=== PATIENT | female | born 1990 | race Caucasian/White ===

== ENCOUNTER 2021-01-07 10:02 | Emergency (ER) | payer MEDICARE ==
[~2021-01-07] VITALS: Ht 165.1 cm; Wt 118.2 kg
[~2021-01-07 10:02] MED LIST: CEPHALEXIN500 M1 PO; FLOMAX 0.40.4 MG/CAP PO; LAMICTAL 25MG T25 MG PO; LITHIUM 30300 MG/CAP PO; LORTAB 5/500 501 TAB PO; MINIPRESS2 MG PO; NAC600 MG PO; NO HOME MEDICATIONS; ORTHO-NOVUM 1/31 TA1 PO; ORTHO-NOVUM 7/71 TA1 PO; PERCOCET 325 MG1 TA2 PO; PHENERGAN 25 TA25 MG PO; SEROQUEL 2525 MG/TAB PO; VITAMIN D1000 IU PO
[2021-01-07 10:20] VITALS: TEMP 100.4
[2021-01-07 10:38] LABS: BASO # 0.1 (0.0-0.2); BASO % 0.4 % (0.0-2.0); EOS % 0.2 % (0-4.0); GRAN % 73.8 % (42.2-75.2); HEMOGLOBIN 11.8 g/dl (12.5-16.0); LYMPH # 1.9 (1.2-3.4); LYMPH % 14.1 % (20.0-51.0); MEAN CELL VOLUME 84 fl (80.0-100.0); MEAN CORPUSCULAR HEMOGLOBIN 27 pg (27.0-31.0); MEAN CORPUSCULAR HGB CONC 32 g/dl (33.0-37.0); MONO # 1.5 (0.1-0.6); PLATELET COUNT 387 K/mm3 (130-400); RED BLOOD COUNT 4.41 M/mm3 (4.10-5.30); REDCELL DISTRIBUTION WIDTH-CV 14.9 % (11.5-14.5)
[2021-01-07 10:48] LABS: COLLECTION METHOD CLEAN CATCH
[2021-01-07 10:55] LABS: ALBUMIN 3.8 gm/dL (3.5-5.0); CALCIUM 8.8 mg/dL (8.4-10.2); CREATININE, serum 0.72 (0.52-1.25); POTASSIUM 3.6 mmol/L (3.4-5.0); TOTAL PROTEIN 7.2 gm/dL (6.4-8.2)
[2021-01-07 10:57] LABS: MUCOUS Present /lpf; PH 6 (5-8); SQUAMOUS EPITHELIAL 0-2 /hpf; URINE APPEARANCE Hazy; URINE BACTERIA Moderate /hpf; URINE BILIRUBIN Negative (NEGATIVE); URINE BLOOD 1+ (NEGATIVE); URINE COLOR Yellow; URINE GLUCOSE Negative (NEGATIVE); URINE KETONE Trace (NEGATIVE); URINE LEUKOCYTE ESTERASE 1+ (NEGATIVE); URINE NITRATE Positive (NEGATIVE); URINE PROTEIN(semi-quant) Negative (NEGATIVE); URINE UROBILINOGEN Negative (NEGATIVE)
[2021-01-07 11:16] LABS: C-REACTIVE PROTEIN 25.4 mg/dL (0.0-0.9)
[2021-01-07] MEDS ORDERED: CEFTIN500 MG PO (11:41)
[2021-01-07] MEDS ORDERED: ZOFRAN ODT4 MG PO (11:41)
[2021-01-07 12:00] VITALS: BP 124/80; PULSE 97
== END 2021-01-07 12:05 | disposition home or self-care (01) ==
LOC: COL.ER 10:02
PROVIDERS: Physician Assistant
DX: N12 Tubulo-interstitial nephritis, not specified as acute or chronic (principal); F20.9 Schizophrenia, unspecified; Z87.442 Personal history of urinary calculi; Z79.899 Other long term (current) drug therapy
CPT/HCPCS: J0696; J1885; J2405; J2550; J3010; J7030

== ENCOUNTER 2021-09-01 20:56 | Emergency (ER) | payer MEDICARE ==
[~2021-09-01] VITALS: Ht 167.6 cm; Wt 95.5 kg
[~2021-09-01 20:56] MED LIST changes: +CEFTIN500 MG PO; +ZOFRAN ODT4 MG PO
[2021-09-01 21:16] VITALS: TEMP 98.5
[2021-09-01] MEDS ORDERED: HALDOL DEC100 MG/1 M (21:43)
[2021-09-01] MEDS ORDERED: COGENTIN 1MG1 MG/TAB (21:43)
[2021-09-01] MEDS ORDERED: PROZAC60 MG (21:44)
[2021-09-01] MEDS ORDERED: PRIL40 (21:44)
[2021-09-01] MEDS ORDERED: ZOVIRAX800 MG (21:45)
[2021-09-01] MEDS ORDERED: LIPITOR20 MG (21:46)
[2021-09-01 22:12] LABS: COLLECTION METHOD CLEAN CATCH
[2021-09-01 22:22] LABS: PH 5 (5-8); SQUAMOUS EPITHELIAL 0-2 /hpf (0-10); URINE APPEARANCE Clear (CLEAR/HAZY); URINE BACTERIA None Seen /hpf (NONE SEEN); URINE BILIRUBIN Negative (NEGATIVE); URINE BLOOD 1+ (NEGATIVE); URINE COLOR Yellow (YELLOW); URINE GLUCOSE Negative (NEGATIVE); URINE KETONE Negative (NEGATIVE); URINE LEUKOCYTE ESTERASE Negative (NEGATIVE); URINE NITRATE Negative (NEGATIVE); URINE PROTEIN(semi-quant) Negative (NEGATIVE); URINE RBC 0-2 /hpf (0-2); URINE UROBILINOGEN Negative (NEGATIVE)
[2021-09-01 22:23] LABS: BASO # 0.1 K/mm3 (0.0-0.2); BASO % 0.5 % (0.0-2.0); EOS # 0.1 K/mm3 (0.0-0.7); GRAN # 7.5 K/mm3 (1.4-6.5); GRAN % 65.9 % (42.2-75.2); HEMATOCRIT 38.5 % (37.0-47.0); HEMOGLOBIN 12.5 g/dl (12.5-16.0); LYMPH # 2.8 K/mm3 (1.2-3.4); LYMPH % 24.6 % (20.0-51.0); MEAN CELL VOLUME 82 fl (80.0-100.0); MEAN CORPUSCULAR HEMOGLOBIN 27 pg (27-31); MEAN CORPUSCULAR HGB CONC 33 g/dl (33.0-37.0); MEAN PLATELET VOLUME 9.5 fl (7.4-10.4); MONO # 0.9 K/mm3 (0.1-0.6); MONO % 7.8 % (1.7-9.3); PLATELET COUNT 502 K/mm3 (130-400); RED BLOOD COUNT 4.68 M/mm3 (4.10-5.30); REDCELL DISTRIBUTION WIDTH-CV 15.1 % (11.5-14.5)
[2021-09-01 22:32] LABS: TRICYCLIC ANTIDEPRESS URINE NEGATIVE
[2021-09-01 22:37] LABS: ALANINE AMINOTRANSFERASE 8 U/L (0-55); ALBUMIN 3.6 gm/dL (3.5-5.0); ALKALINE PHOSPHATASE 106 U/L (40-150); ANION GAP 8 mmol/L (7-16); AST,SGOT 11 U/L (5-34); BILIRUBIN,TOTAL 0.5 mg/dL (0.2-1.2); BLOOD UREA NITROGEN 8 mg/dL (7-19); CALCIUM 8.9 mg/dL (8.4-10.2); CARBON DIOXIDE 21 mmol/L (22-29); CHLORIDE 109 mmol/L (98-107); GLUCOSE 83 mg/dL (70-99); POTASSIUM 3.8 mmol/L (3.5-4.5); SODIUM 138 mmol/L (136-145); TOTAL PROTEIN 7.6 gm/dL (6.2-8.1)
[2021-09-01 22:40] LABS: ACETAMINOPHEN < 1.0 ug/mL (10-30); ALCOHOL(ethanol),MEDICAL < 10 mg/dL (0-10); SALICYLATE < 5.0 mg/dL (15.0-30.0)
[2021-09-02 05:10] VITALS: BP 129/85; PULSE 110
== END 2021-09-02 05:10 | disposition short-term general hospital (02) ==
LOC: COL.ER 20:56
PROVIDERS: Student in an Organized Health Care Education/Training Program
DX: R44.0 Auditory hallucinations (principal); Z20.822 Contact with and (suspected) exposure to COVID-19

== ENCOUNTER → 2021-12-12 | Outpatient (CLI) | payer MEDICARE ==
[~2021-12-12] MED LIST changes: +COGENTIN 1MG1 MG/TAB; +HALDOL DEC100 MG/1 M; +LIPITOR20 MG; +PRIL40; +PROZAC60 MG; +ZOVIRAX800 MG
== END ==
LOC: COL.RAD 11-14 09:00
DX: K52.9 Noninfective gastroenteritis and colitis, unspecified (principal); R11.10 Vomiting, unspecified

== ENCOUNTER 2024-02-11 17:02 | Inpatient (IN) | payer MEDICARE ==
[~2024-02-11] VITALS: Ht 167.6 cm; Wt 100.9 kg
[~2024-02-11 17:02] MED LIST changes: +ABILIFY 10MG TA10 MG PO; +BENTYL 20MG20 MG/TAB PO; +COLACE 100100 MG/CAP PO; +MELATONIN ER10 MG PO; +PRENATAL TABLET PO; -PRIL40; +PRIL40 PO; +PROFE180 MG PO; -PROZAC60 MG; +PROZAC60 MG PO; +REGLAN 10MG10 MG/TAB PO; +SEROQUEL 200MG200 MG PO; +SPRINTEC 35 MCG1 TAB PO; +VITAMIN D31000 I1 PO; -ZOVIRAX800 MG; +ZOVIRAX800 MG PO
[2024-02-11] MEDS ORDERED: Ketorolac 30 MG/ML VIAL IV ONE (17:30)
[2024-02-11] MEDS ORDERED: Ketorolac 15 MG/ML VIAL IV SCH (18:45)
[2024-02-11] MEDS ORDERED: D5 1/2 NS 1,000 ML IV SCH (18:45)
[2024-02-11] MEDS ORDERED: LATUDA40 MG PO (19:10)
[2024-02-11] MEDS ORDERED: PROZAC40 MG PO (19:11)
[2024-02-11] MEDS ORDERED: FERRO-TIME325 MG PO (19:19)
[2024-02-11] MEDS ORDERED: Acetaminophen 500 MG TAB PO SCH (19:45)
[2024-02-11] MEDS ORDERED: Lurasidone 20 MG TABLET PO SCH (19:55)
[2024-02-11 20:39] VITALS: BP 124/86; PULSE 69; TEMP 98.5
[2024-02-11 20:48] LABS: BASO % 0.2 % (0.0-2.0); EOS % 0.1 % (0.0-4.0); GRAN # 13.8 K/mm3 (1.4-6.5); GRAN % 84.4 % (42.2-75.2); HEMATOCRIT 39.4 % (37.0-47.0); HEMOGLOBIN 13.7 g/dl (12.5-16.0); LYMPH # 1.8 K/mm3 (1.2-3.4); MEAN CELL VOLUME 88 fl (80.0-100.0); MEAN CORPUSCULAR HEMOGLOBIN 31 pg (27-31); MEAN CORPUSCULAR HGB CONC 35 g/dl (33.0-37.0); MEAN PLATELET VOLUME 9.4 fl (7.4-10.4); MONO # 0.6 K/mm3 (0.1-0.6); MONO % 3.9 % (1.7-9.3); PLATELET COUNT 361 K/mm3 (130-400); RED BLOOD COUNT 4.47 M/mm3 (4.10-5.30); REDCELL DISTRIBUTION WIDTH-CV 12.6 % (11.5-14.5)
[2024-02-11 21:00] VITALS: BP_SYST 119
[2024-02-11] MEDS ORDERED: Prazosin 1 MG CAP PO SCH (21:00)
[2024-02-11] MEDS ORDERED: Docusate Sodium 100 MG CAP PO SCH (21:00)
[2024-02-11] MEDS ORDERED: Melatonin 3 MG TAB PO SCH (21:00)
[2024-02-11] MEDS ORDERED: Prenatal Vitamins/Iron/FA TAB PO SCH (21:00)
[2024-02-11] MEDS ORDERED: Ferrous Sulfate 325 MG TAB PO SCH (21:00)
[2024-02-11 21:04] LABS: ALBUMIN 3.7 g/dL (3.5-5.0); BILIRUBIN,TOTAL 0.7 mg/dL (0.2-1.2); CALCIUM 8.5 mg/dL (8.4-10.2); CREATININE, serum 0.78 mg/dL (0.57-1.11); POTASSIUM 3.8 mEq/L (3.5-4.5); TOTAL PROTEIN 6.9 g/dl (6.2-8.1)
--- NOTE | 2024-02-11 21:28 | NUR ---
Patient wheeled to radiology for CT of the left leg.
[2024-02-11 21:48] LABS: PROTHROMBIN TIME 11.1 SECONDS (9.7-12.8)
--- NOTE | 2024-02-11 22:00 | NUR ---
Patient arrived to the floor from the ED per cart at 1999, with mother in law at bedside, splint to left leg clean, dry and intact, Dr. Gonzalez at the bedside at this time, with IV infusing well on left antecubital, VSS, admission assessment and intake done, medrec reviewed, denies further needs, call light and personal items within reach, will continue to monitor.
[2024-02-11 23:48] VITALS: BP 119/77; PULSE 83; TEMP 98.8
[2024-02-12] VITALS (13 sets, daily range): BP systolic 107–125; BP diastolic 62–83; PULSE 71–106; TEMP 97.7–98.7
[2024-02-12] MEDS ORDERED: Omeprazole 40 MG **** subs to Pantoprazole 40 MG PO SCH (07:00)
[2024-02-12 07:14] LABS: COLLECTION METHOD CLEAN CATCH
[2024-02-12] MEDS ORDERED: LR 1,000 ML IV SCH (07:30)
[2024-02-12] MEDS ORDERED: Famotidine 20 MG TAB PO SCH (07:30)
[2024-02-12] MEDS ORDERED: Scopolamine 1 MG Delivered 3-Day PATCH TD SCH (07:30)
[2024-02-12 07:33] LABS: PH 5.5 (5.0-8.5); URINE APPEARANCE CLEAR (CLEAR/HAZY); URINE BLOOD NEGATIVE (NEGATIVE); URINE COLOR YELLOW (YELLOW); URINE GLUCOSE NEGATIVE (NEGATIVE); URINE KETONE 1+ (NEGATIVE); URINE NITRATE NEGATIVE (NEGATIVE); URINE PROTEIN(semi-quant) NEGATIVE (NEGATIVE); URINE UROBILINOGEN 0.2 E.U/dL (0.2-1.0)
--- NOTE | 2024-02-12 08:00 | NUR ---
Pt. sitting up in bed. Pt. is A&OX3, assessment complete. IV to lt. ac patent, Iv fluids infusing per orders. Pt. reports pain at a 6 on pain scale at this time. Pt. voices that she does not want narcotic pain meds d/t a passt addiction. Informed pt. when next meds were due. Pt. voices understanding. Pt. denies further needs, call light within reach.
[2024-02-12] MEDS ORDERED: FLUoxetine 20 MG CAP PO SCH (09:00)
[2024-02-12] MEDS ORDERED: THE MEDICINE S200 M2 PO (09:20)
--- NOTE | 2024-02-12 10:54 | NUR ---
Initial visit; Patient thanked Veneer Marker for looking in on her and listening. She was getting anxious waiting for her surgery but said Veneer Marker could put her in her prayers. Veneer Marker prays for a successful surgical procedure and rapid and thorough healing. Her mom was present prior to and after visit.
[2024-02-12] MEDS ORDERED: Acetaminophen 500 MG TAB PO SCH ×2 (12:00→16:49)
[2024-02-12] MEDS ORDERED: HYDROmorphone 2 MG/1 ML VIAL ONE (12:10)
[2024-02-12] MEDS ORDERED: fentaNYL 50 MCG/ML 2 ML VIAL ONE (12:11)
[2024-02-12] MEDS ORDERED: Lidocaine PF 2% (20 MG/ML) 5 ML VIAL ONE (12:11)
[2024-02-12] MEDS ORDERED: Ketorolac 30 MG/ML VIAL ONE (12:12)
[2024-02-12] MEDS ORDERED: Ondansetron 4 MG/2 ML VIAL ONE (12:12)
[2024-02-12] MEDS ORDERED: NS 10 ML IV ONE (12:12)
[2024-02-12] MEDS ORDERED: dexAMETHasone 10 MG/ML VIAL ONE (12:12)
[2024-02-12] MEDS ORDERED: Glycopyrrolate 0.2 MG/ML 1 ML VIAL ONE (12:12)
[2024-02-12] MEDS ORDERED: hydrALAZINE 20 MG/ML 1 ML VIAL IV PRN (12:30)
[2024-02-12] MEDS ORDERED: HYDROmorphone 1 MG/1 ML SYRINGE [PACU/SDC ONLY] IV PRN (12:30)
[2024-02-12] MEDS ORDERED: Ondansetron 4 MG/2 ML VIAL IV PRN ×2 (12:30→16:00)
[2024-02-12] MEDS ORDERED: fentaNYL 50 MCG/ML 1 ML SYRINGE/VIAL [PACU/SDC ONLY] IV PRN (12:30)
[2024-02-12] MEDS ORDERED: droPERidol 2.5 MG/ML 2 ML VIAL IV PRN (12:30)
--- NOTE | 2024-02-12 12:43 | NUR ---
Dr. Sheriff notified about needing ECHO results. Per Dr. Sheriff pt. is ok to go to surgery.
--- NOTE | 2024-02-12 12:53 | NUR ---
Pt. to the OR.
[2024-02-12] MEDS ORDERED: Midazolam 2 MG/2 ML VIAL ONE (13:07)
--- NOTE | 2024-02-12 15:42 | NUR ---
Coding Validator attempted to meet with patient who was in surgery. SW contacted patient's , [facility] (ph#[phone]) to complete initial intake. Patient lives in [place] and sees Dr. Trujillo for primary care. 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 [facility] does not believe patient has DPOA-HC completed. SW advised they will follow along for any discharge recommendations. Discharge Plan; TBD post surgery
[2024-02-12] MEDS ORDERED: Naloxone 0.4 MG/ML VIAL IV PRN (16:00)
[2024-02-12] MEDS ORDERED: Ketorolac 15 MG/ML VIAL IV SCH (16:00)
[2024-02-12] MEDS ORDERED: NS 1,000 ML IV SCH (16:00)
[2024-02-12] MEDS ORDERED: Magnes Hydrox (MOM) 80 MG/ML 30 ML CUP PO PRN (16:00)
[2024-02-12] MEDS ORDERED: ceFAZolin 2 G in Water For Injection,Sterile 20 ML IV SCH (20:00)
--- NOTE | 2024-02-12 20:14 | NUR ---
Patient reports she's feeling a lot better, VSS, assessed at this time, denies pain or discomfort, took her HS pills after she ate food that her brought, dressing to left leg clean, dry and intact with boots on, reapplied ice pack, DIGNA's and SCD's on to right leg, CMS intact, denies further needs, call light and personal items within reach, will continue to monitor.
[2024-02-12] MEDS ORDERED: Sennosides/Docusate 8.6-50 MG TAB PO SCH (21:00)
[2024-02-13] VITALS (8 sets, daily range): BP systolic 107–122; BP diastolic 69–81; PULSE 75–83; TEMP 98.1–98.4
--- NOTE | 2024-02-13 | NUR ---
Patient up to the BSC at this time with one person assist with gaitbelt, did fine, voided and assisted her back to bed, scheduled toradol and tylenol given at this time.
--- NOTE | 2024-02-13 09:30 | NUR ---
Pt doing okay this morning. She stated that she had a good night and that her pain is minimal, rating it 2/10. Pt does have dressing to LLE with khari wrap and brace on. Pt is aware that she is TTWB and does well. I did assist her to the commode and she had some balance issues with transfer, she did use a walker. PT tolerating diet without any complaints. She states she plans to stay with her mother in law while she is recovering.
[2024-02-13] MEDS ORDERED: WALKER MC (12:42)
[2024-02-13] MEDS ORDERED: ASPIRIN E.C. 8181 MG PO (12:49)
[2024-02-13] MEDS ORDERED: WHCH MC (12:51)
--- NOTE | 2024-02-13 13:48 | NUR ---
farmworker general met with pt as PT reccomends HH and a walker, wheelchair, and commode for also use in the shower. 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 SW met with pt to provide Medicare.gov list of HH agencies. She chose [facility]. Pt was open to obtaining the DME from [facility] due to no preference. She confirmed to want the FWW ordered, rent the wheelchair with leg rests, and purchased the commode for $137. Pt called her and he was updated as well. [facility] faxed [facility] referral and informed Mackenzie to call SW as pt is discharging now. [facility] completed DME order information and sent to [facility]. They brought items to room. Discharge Plan: home to [facility]'s with HH
--- NOTE | 2024-02-13 14:30 | NUR ---
Pt doing well. She has worked with PT. She has received her walker and wheelchair for home use. Pt wanting to shower before she goes home. Informed her that we would assist with that and that I would change her dressing as well at that time
--- NOTE | 2024-02-13 15:35 | NUR ---
Pt in shower at this time. Drsg removed from E. Incision above knee well approximated with raciel. Pt has small incision below knee that is well approximated and then small incision at her ankle, all well approximated. The most inferior incision has small amount of drainage. OT assisting with her shower at this time
--- NOTE | 2024-02-13 16:38 | NUR ---
Reviewed discharge instructions with pt, spouse and mother in law. Reviewed dressing changes with them as well as post op care of her leg. New xeroform, gauze and khari wrap applied. Pt reported pain was tolerable at discharge following her shower. INT removed from Fanny ALFARO prior to her shower. Pt escorted out at this time
--- NOTE | 2024-02-14 08:16 | NUR ---
ISSA spoke with [facility], Mackenzie who reports they could accept pt for PT only and could not see her until earliest Saturday. ISSA advised she will check with pt and see how she feels. [facility] attempted to reach pt and she was working with OT. Previous to that, she called [facility] requesting disability placard information. ISSA left this in her room with instructions. ISSA spoke with [facility] to see if they had sooner openings and could accept pt's [employer] insurance. They were reviewing, but next day informed [facility]A Donnelly they could see her Saturday. Cony sent all demos and discharge orders. ISSA called [facility] and left a voicemail to Mackenzie information her that they went with a different agency.
== END 2024-02-13 16:43 | disposition home health service (06) | DRG 493 ==
LOC: COL.ER 17:02 → SURG 18:58
PROVIDERS: Nurse Practitioner Family; Orthopaedic Surgery; ADMIT Internal Medicine
PROC: 0QSH36Z Reposition Left Tibia with Intramedullary Internal Fixation Device, Percutaneous Approach (ICD-10-PCS; principal; 2024-02-12 12:30)
DX: S82.252A Displaced comminuted fracture of shaft of left tibia, initial encounter for closed fracture (principal); Q23.1 Congenital insufficiency of aortic valve; S82.62XA Displaced fracture of lateral malleolus of left fibula, initial encounter for closed fracture; E78.5 Hyperlipidemia, unspecified; S92.151A Displaced avulsion fracture (chip fracture) of right talus, initial encounter for closed fracture; F20.9 Schizophrenia, unspecified; W10.8XXA Fall (on) (from) other stairs and steps, initial encounter; K21.9 Gastro-esophageal reflux disease without esophagitis; S90.31XA Contusion of right foot, initial encounter; Z87.891 Personal history of nicotine dependence; Z79.899 Other long term (current) drug therapy; Z88.5 Allergy status to narcotic agent; Z90.89 Acquired absence of other organs; Y92.094 Garage of other non-institutional residence as the place of occurrence of the external cause; Z87.442 Personal history of urinary calculi; Y93.89 Activity, other specified; Z98.1 Arthrodesis status
CPT/HCPCS: A9270; A9284; C1713; C1769; J0688; J0690; J1100; J1170; J1885; J2250; J2405; J2704; J3010; J7120; L4386